=== PATIENT | male | born 1970 | race Caucasian/White ===

== ENCOUNTER 2016-12-31 17:49 | Inpatient (IN) | payer MEDICAID ==
[~2016-12-31] VITALS: Ht 165.1 cm; Wt 55.3 kg
[~2016-12-31 17:49] MED LIST: INSLAN SQ
[2016-12-31] MEDS ORDERED: ONDANSETRON HCL 4MG/2ML VIAL IV STA (18:27)
[2016-12-31] MEDS ORDERED: MORPHINE SULFATE 4 MG/ML CPJ (NOT FOR IM USE) IV STA (18:27)
[2016-12-31] MEDS ORDERED: ACETAMINOPHEN 325MG TABLET PO ONE (18:30)
[2016-12-31 19:09] LABS: BASOPHILS % 0.2 % (0.0-2.0); EOSINOPHILS % 7.8 % (0.0-5.0); HEMATOCRIT. 32.1 % (42.0-52.0); HEMOGLOBIN. 10.8 g/dL (14.0-18.0); LYMPHOCYTES % 7.9 % (20.0-50.0); MEAN CORPUSCULAR HEMOGLOBIN 31.8 pg (28.0-32.0); MEAN CORPUSCULAR VOLUME 94.6 fL (80.0-94.0); MEAN PLATELET VOLUME 8.3 fl (7.4-10.4); MONOCYTES % 0.7 % (2.0-8.0); NEUTROPHILS % 83.4 % (40.0-76.0); PLATELET 180 x1000/uL (130-400); RED BLOOD CELL COUNT 3.39 mill/uL (4.7-6.1); RED CELL DISTRIBUTION WIDTH 17.7 % (11.6-14.6)
[2016-12-31 19:12] LABS: INR 1.1; PROTHROMBIN TIME 11.6 sec (9.4-11.6)
[2016-12-31] MEDS ORDERED: PIPERACILLIN/TAZ 3.375G PREMIX 50 ML IV ONE (19:15)
[2016-12-31] MEDS ORDERED: VANCOMYCIN 1 G PREMIX 200 ML IV ONE (19:15)
[2016-12-31 19:21] LABS: CARBON DIOXIDE 30 mEq/L (21-32); CHLORIDE 96 mEq/L (98-107); TROPONIN I < 0.02 ng/mL (0.00-0.04)
[2016-12-31 23:12] LABS: CLARITY URINE CLEAR (CLEAR); COLOR URINE YELLOW (YELLOW); GLUCOSE URINE 1+ (NEGATIVE); KETONES URINE NEGATIVE (NEGATIVE); LEUKOCYTE ESTERASE URINE TRACE (NEGATIVE); NITRITE URINE NEGATIVE (NEGATIVE); OCCULT BLOOD URINE NEGATIVE (NEGATIVE); PH URINE 8.5 (4.5-8.0); PROTEIN URINE 3+ (NEGATIVE); SPECIFIC GRAVITY URINE 1.008 (1.005-1.030); UROBILINOGEN URINE 0.2 E.U./dL (0.2-1.0)
[2016-12-31] MEDS ORDERED: ENOXAPARIN 40MG/0.4ML SYR SUBCUT SCH (23:45)
[2016-12-31] MEDS ORDERED: MAGNESIUM/ALUMINUM HYDROXIDE/SIMETHICONE 30ML UDC PO PRN (23:45)
[2016-12-31] MEDS ORDERED: DOCUSATE SODIUM 100MG CAPSULE PO PRN (23:45)
[2016-12-31] MEDS ORDERED: ACETAMINOPHEN 650MG SUPP PR PRN (23:45)
[2016-12-31] MEDS ORDERED: HYDROCODONE/ACETAMINOPHEN 10/325MG TABLET PO PRN (23:45)
[2016-12-31] MEDS ORDERED: GUAIFENESIN 200MG/10ML SUGAR FREE UDC PO PRN (23:45)
[2016-12-31] MEDS ORDERED: ACETAMINOPHEN 325MG TABLET PO PRN (23:45)
[2016-12-31] MEDS ORDERED: DIPHENHYDRAMINE 50MG/ML VIAL IV PRN (23:45)
[2016-12-31] MEDS ORDERED: IPRATROPIUM/ALBUTEROL 0.5-3(2.5)MG/3ML NEB INH PRN (23:45)
[2016-12-31] MEDS ORDERED: MORPHINE SULFATE 2 MG/ML CPJ (NOT FOR IM USE) IV PRN (23:45)
[2016-12-31] MEDS ORDERED: CLONIDINE 0.1MG TABLET PO PRN (23:45)
[2016-12-31] MEDS ORDERED: ACETAMINOPHEN 650MG/20.3ML UDC GT PRN (23:45)
[2017-01-01] MEDS ORDERED: CEFTRIAXONE 1 G PREMIX 50 ML IV SCH (01:00)
[2017-01-01] MEDS: ONDANSETRON HCL 4MG/2ML VIAL IV PRN ×2 (05:15→18:58)
[2017-01-01] MEDS: SODIUM CHLORIDE 0.9% INJ 3ML FLUSH IVF SCH ×3 (05:17→22:30)
[2017-01-01 05:38] VITALS: BP 99/65
[2017-01-01 05:51] VITALS: BP 129/71
[2017-01-01 08:00] VITALS: BP 102/68
[2017-01-01] MEDS: ENOXAPARIN 30MG/0.3ML SYR SUBCUT SCH (08:12)
[2017-01-01] MEDS ORDERED: NA PHOS,M-B/NA PHOS,DI-BA ENEMA 118ML PR PRN (09:00)
[2017-01-01 09:15] LABS: BASOPHILS % 0.7 % (0.0-2.0); EOSINOPHILS % 8.5 % (0.0-5.0); HEMATOCRIT. 29.9 % (42.0-52.0); HEMOGLOBIN. 9.8 g/dL (14.0-18.0); LYMPHOCYTES % 11.9 % (20.0-50.0); MEAN CORPUSCULAR HEMOGLOBIN 31.4 pg (28.0-32.0); MEAN CORPUSCULAR VOLUME 95.7 fL (80.0-94.0); MEAN PLATELET VOLUME 8.9 fl (7.4-10.4); MONOCYTES % 4.7 % (2.0-8.0); NEUTROPHILS % 74.2 % (40.0-76.0); PLATELET 188 x1000/uL (130-400); RED BLOOD CELL COUNT 3.12 mill/uL (4.7-6.1); RED CELL DISTRIBUTION WIDTH 18.8 % (11.6-14.6)
[2017-01-01] MEDS ORDERED: ZOSYN XX SCH (11:00)
[2017-01-01 11:53] LABS: *AMPHETAMINES SCREEN URINE NEGATIVE (NEGATIVE); *BARBITURATES SCREEN URINE NEGATIVE (NEGATIVE); *BENZODIAZEPINES SCREEN URINE NEGATIVE (NEGATIVE); *COCAINE SCREEN URINE NEGATIVE (NEGATIVE); CANNABINOID URINE SCREEN NEGATIVE (NEGATIVE); METHADONE URINE SCREEN NEGATIVE (NEGATIVE); OPIATES URINE SCREEN PRESUMTIVE POSITIVE (NEGATIVE); PHENCYCLIDINE URINE SCREEN NEGATIVE (NEGATIVE)
[2017-01-01 12:00] VITALS: BP 92/56
[2017-01-01] MEDS ORDERED: SODIUM CHLORIDE 0.9% 250 ML IV ONE (12:00)
[2017-01-01] MEDS: PIPERACILLIN/TAZ 2.25G PREMIX 50 ML IV SCH ×2 (13:14→22:30)
[2017-01-01] MEDS ORDERED: VANCOMYCIN 1 G PREMIX 200 ML IV SCH (14:00)
[2017-01-01 16:00] VITALS: BP 91/54
[2017-01-01 20:20] VITALS: BP 106/66
[2017-01-02] VITALS (7 sets, daily range): BP systolic 107–135; BP diastolic 57–89
[2017-01-02] MEDS: PIPERACILLIN/TAZ 2.25G PREMIX 50 ML IV SCH ×3 (05:47→21:27)
[2017-01-02] MEDS: SODIUM CHLORIDE 0.9% INJ 3ML FLUSH IVF SCH ×3 (06:18→21:27)
[2017-01-02 07:00] LABS: HEMATOCRIT. 32.4 % (42.0-52.0); HEMOGLOBIN. 10.8 g/dL (14.0-18.0); MEAN CORPUSCULAR HEMOGLOBIN 31.9 pg (28.0-32.0); MEAN CORPUSCULAR VOLUME 95.9 fL (80.0-94.0); MEAN PLATELET VOLUME 8.7 fl (7.4-10.4); PLATELET 195 x1000/uL (130-400); RED BLOOD CELL COUNT 3.38 mill/uL (4.7-6.1); RED CELL DISTRIBUTION WIDTH 18.5 % (11.6-14.6)
[2017-01-02 07:36] LABS: CHLORIDE 95 mEq/L (98-107)
[2017-01-02] MEDS: ONDANSETRON HCL 4MG/2ML VIAL IV PRN ×2 (07:52→19:46)
[2017-01-02 07:55] LABS: CARBON DIOXIDE 26 mEq/L (21-32); PHOSPHORUS 6.3 mg/dL (2.5-4.9)
[2017-01-02] MEDS: ENOXAPARIN 30MG/0.3ML SYR SUBCUT SCH (08:06)
[2017-01-02] MEDS ORDERED: ONDANSETRON HCL 4MG/2ML VIAL IV PRN (09:15)
[2017-01-02] MEDS: CALCIUM ACETATE 667MG CAPSULE PO SCH ×3 (09:23→17:01)
[2017-01-02] MEDS: FOLIC ACID/VITAMIN B COMP W-C TABLET PO SCH (09:24)
[2017-01-02] MEDS ORDERED: SODIUM CHLORIDE 0.9% 1000ML BAG (SEPSIS BOLUS) IV ONE (12:30)
[2017-01-02] MEDS: METOCLOPRAMIDE HCL 10MG/2ML VIAL IV SCH ×3 (12:37→23:51)
[2017-01-02] MEDS ORDERED: SODIUM CHLORIDE 0.9% 250 ML IV ONE (12:45)
[2017-01-02 14:24] LABS: PLATELET ESTIMATE NORMAL
[2017-01-02] MEDS: ACETAMINOPHEN 325MG TABLET PO PRN (19:45)
[2017-01-02] MEDS ORDERED: EPOETIN ALFA 4000UNITS/ML VIAL SUBCUT SCH ×2 (21:00)
[2017-01-02] MEDS ORDERED: SODIUM CHLORIDE 0.9% 1,000 ML IV SCH (21:15)
[2017-01-03] VITALS (9 sets, daily range): BP systolic 103–143; BP diastolic 68–93
[2017-01-03] MEDS: METOCLOPRAMIDE HCL 10MG/2ML VIAL IV SCH ×2 (05:12→11:10)
[2017-01-03] MEDS: SODIUM CHLORIDE 0.9% INJ 3ML FLUSH IVF SCH (05:13)
[2017-01-03] MEDS: PIPERACILLIN/TAZ 2.25G PREMIX 50 ML IV SCH ×2 (05:13→12:37)
[2017-01-03] MEDS: ONDANSETRON HCL 4MG/2ML VIAL IV PRN (06:37)
[2017-01-03] MEDS: ACETAMINOPHEN 325MG TABLET PO PRN (06:37)
[2017-01-03] MEDS: CALCIUM ACETATE 667MG CAPSULE PO SCH ×2 (08:44→12:37)
[2017-01-03] MEDS: FOLIC ACID/VITAMIN B COMP W-C TABLET PO SCH (08:44)
[2017-01-03] MEDS: ENOXAPARIN 30MG/0.3ML SYR SUBCUT SCH (08:45)
[2017-01-03 09:37] LABS: BASOPHILS % 1.2 % (0.0-2.0); EOSINOPHILS % 12.6 % (0.0-5.0); HEMATOCRIT. 33.7 % (42.0-52.0); HEMOGLOBIN. 10.8 g/dL (14.0-18.0); LYMPHOCYTES % 13.8 % (20.0-50.0); MEAN CORPUSCULAR HEMOGLOBIN 31.5 pg (28.0-32.0); MEAN CORPUSCULAR VOLUME 97.9 fL (80.0-94.0); MEAN PLATELET VOLUME 9.7 fl (7.4-10.4); MONOCYTES % 5.3 % (2.0-8.0); NEUTROPHILS % 67.1 % (40.0-76.0); PLATELET 170 x1000/uL (130-400); RED BLOOD CELL COUNT 3.44 mill/uL (4.7-6.1); RED CELL DISTRIBUTION WIDTH 18.9 % (11.6-14.6)
[2017-01-03] MEDS ORDERED: MORPHINE SULFATE 4 MG/ML CPJ (NOT FOR IM USE) IV PRN (09:45)
[2017-01-03 09:55] LABS: CARBON DIOXIDE 25 mEq/L (21-32); CHLORIDE 103 mEq/L (98-107)
[2017-01-03] MEDS ORDERED: INSULIN DETEMIR UD 100 UNITS/ML SYR SUBCUT SCH (10:00)
[2017-01-03] MEDS ORDERED: METRONIDAZOLE 500MG TABLET PO SCH ×3 (10:42→18:00)
[2017-01-03] MEDS ORDERED: METR250T PO (12:26)
[2017-01-06 04:07] LABS: OVA & PARASITE EXAM Final report (.)
== END 2017-01-03 14:40 | disposition home or self-care (01) | DRG 720 ==
LOC: ER 17:49 → 7WST 19:59 → EDBEDREQTM 20:00 → EDBEDREQSVC 20:00 → EDBEDREQ 20:00 → ENRESERV 01-01 03:47 → 5EST 01-02 14:27
PROVIDERS: ADMIT Family Medicine; ATTEND Family Medicine
PROC: 5A1D00Z (ICD-10-PCS; principal; 2017-01-02)
DX: A41.9 Sepsis, unspecified organism (principal); I13.2 Hypertensive heart and chronic kidney disease with heart failure and with stage 5 chronic kidney disease, or end stage renal disease; N18.6 End stage renal disease; E11.21 Type 2 diabetes mellitus with diabetic nephropathy; D72.1 Eosinophilia; E46 Unspecified protein-calorie malnutrition; E11.22 Type 2 diabetes mellitus with diabetic chronic kidney disease; E87.1 Hypo-osmolality and hyponatremia; E11.65 Type 2 diabetes mellitus with hyperglycemia; E83.39 Other disorders of phosphorus metabolism; F10.21 Alcohol dependence, in remission; H40.9 Unspecified glaucoma; I50.9 Heart failure, unspecified; K52.9 Noninfective gastroenteritis and colitis, unspecified; N25.81 Secondary hyperparathyroidism of renal origin; B96.89 Other specified bacterial agents as the cause of diseases classified elsewhere; N40.0 Benign prostatic hyperplasia without lower urinary tract symptoms; Z79.4 Long term (current) use of insulin; Z83.3 Family history of diabetes mellitus; Z86.19 Personal history of other infectious and parasitic diseases; Z99.2 Dependence on renal dialysis; Z68.20 Body mass index [BMI] 20.0-20.9, adult; Z87.442 Personal history of urinary calculi
CPT/HCPCS: 36415; 71010; 74000; 76700; 80053; 80061; 80202; 80305; 81001; 82962; 83605; 83735; 84100; 84484; 85025; 85610; 87040; 87077; 87086; 87177; 87186; 87209; 87493; 93005; 93306; 96374; 96375; 99291; J0696; J0885; J1650; J1815; J2270; J2405; J2543; J2765; J3370; J7030; J7040; J7050